=== PATIENT | female | born 1980 | race Hispanic/Latino ===

== ENCOUNTER 2024-06-16 18:04 | Emergency (ER) | payer OTHER ==
[~2024-06-16] VITALS: Ht 154.9 cm; Wt 68.0 kg
[2024-06-16 18:06] VITALS: BP 145/83; PULSE 80; RESP 14; TEMP 98.9
[2024-06-16] MEDS ORDERED: CYCL10TA16 PO (19:00)
[2024-06-16] MEDS ORDERED: KETO10TA2 PO (19:00)
[2024-06-16] MEDS: ORPHENADRINE 60MG/2ML IM ONE (19:22)
[2024-06-16] MEDS: TRIAMCINOLONE ACETONIDE 40 MG/ML 1ML VIAL IM ONE (19:22)
[2024-06-16] MEDS: ketOROlac 30MG VIAL (30MG/ML) IM ONE (19:22)
== END 2024-06-16 20:08 | disposition home or self-care (01) ==
LOC: EDH 18:04
DX: S16.1XXA Strain of muscle, fascia and tendon at neck level, initial encounter (principal); R51.9 Headache, unspecified; I10 Essential (primary) hypertension; J45.909 Unspecified asthma, uncomplicated; Z79.899 Other long term (current) drug therapy; Z90.49 Acquired absence of other specified parts of digestive tract; Z98.890 Other specified postprocedural states; V89.2XXA Person injured in unspecified motor-vehicle accident, traffic, initial encounter; Y93.89 Activity, other specified; Y92.488 Other paved roadways as the place of occurrence of the external cause; Y99.8 Other external cause status
CPT/HCPCS: 99285; 70450; 72125; 96372 ×3; J3301; J1885; J2360